=== PATIENT | female | born 1950 | race Caucasian/White ===

== ENCOUNTER 2024-01-02 14:22 | Emergency (ER) | payer OTHER ==
--- OUTSIDE RECORDS SUMMARY | 2024-01-02 14:25 | XMS REPORT | Continuity of Care Document ---
Author Name Unknown Address [address] [facility] [address] [place] [address] [facility] Address [address] [facility] [address] [place] [address] Care Team Providers Care Assurance Services Manager Health Care Name Role Phone Emilee Huerta Attending Clinician Unavailable Emilee Huerta Attending Clinician Unavailable Robles, Na Ly Attending Clinician Unavailable Robles, Na L Admitting Clinician Unavailable Payers Payer Name Policy Type Policy Number Effective Date Expirati on Date Source [facility] HealthSelect TRS/ERS [facility] PPO 1 [id number] [facility] Problems Condition Name Condition Details Condition Category Status Onset Date Resolution Date Last Treatment Date Treating Clinician Comments Source [id number] Mixed hyperlipid emia Problem [facility] [id number] Intractabl e migraine with status migrainosu s, unspecifie d migraine type Problem [facility] [id number] Depression , major, recurrent, mild Problem [facility] [id number] Right elbow tendinitis Problem [facility] [id number] Abrasion of nose, initial encounter Problem [facility] [id number] History of basal cell cancer Problem [facility] [id number] Local infection of the skin and subcutaneo us tissue, unspecifie d Problem [facility] [id number] Major depressive disorder, single episode, unspecifie d Problem [facility] [id number] Meningioma Problem Com [facility] [id number] Pre-proced ure lab exam Problem [facility] [id number] Hx of abnormal mammogram Problem [facility] [id number] Vitamin D deficiency Problem [facility] [id number] Post-menop ausal atrophic vaginitis Problem [facility] [id number] Anxiety disorder, unspecifie d Problem [facility] Social History Social Habit Start Date Stop Date Quantity Comments Source History of Tobacco Use [facility] Sex Assigned At [facility] Smoking Status Start Date Stop Date Source Never Smoker [facility] Medications Ordered Medication Name Filled Medication Name Start Date Stop Date Current Medication? Ordering Clinician Indication Dosage Frequency Signature (SIG) Comments Components Source SUMAtriptan Succinate 50 MG SUMAtriptan Succinate 50 MG No SUMAtripta n Succinate 50 MG Restasis 0.05 % Restasis 0.05 % No 1{drop_ into_af fected_ eye} BID Restasis 0.05 % Multivitami n - Multivitami n - No 1{table t} QD Multivitam in - Estradiol 0.1 MG/GM Estradiol 0.1 MG/GM No Estradiol 0.1 MG/GM FLUoxetine HCl 20 MG FLUoxetine HCl 20 MG No 1{capsu le} QD FLUoxetine HCl 20 MG Rosuvastati n Calcium 10 MG Rosuvastati n Calcium 10 MG No 1{table t} Rosuvastat in Calcium 10 MG Fish Oil Fish Oil No Fish Oil Immunizations Ordered Immunization Name Filled Immunization Name Date Status Comments Source Prevnar 20 (PCV20) Prevnar 20 (PCV20) Unknown Completed [facility] Prevnar 20 (PCV20) Prevnar 20 (PCV20) Unknown Completed [facility] Prevnar 20 (PCV20) Prevnar 20 (PCV20) Unknown Completed [facility] Prevnar 20 (PCV20) Prevnar 20 (PCV20) Unknown Completed [facility] Prevnar 20 (PCV20) Prevnar 20 (PCV20) Unknown Completed [facility] Prevnar 20 (PCV20) Prevnar 20 (PCV20) Unknown Completed [facility] Prevnar 20 (PCV20) Prevnar 20 (PCV20) Unknown Completed [facility] Prevnar 20 (PCV20) Prevnar 20 (PCV20) Unknown Completed [facility] Prevnar 20 (PCV20) Prevnar 20 (PCV20) Unknown Completed [facility] Prevnar 20 (PCV20) Prevnar 20 (PCV20) Unknown Completed [facility] Prevnar 20 (PCV20) Prevnar 20 (PCV20) Unknown Completed [facility] Prevnar 20 (PCV20) Prevnar 20 (PCV20) Unknown Completed [facility] Vital Signs Vital Name Observation Time Observation Value Comments S ource height 2023-10-02 15:00:00 62 [in_i] Commo n [facility] weight 2023-10-02 15:00:00 140 [lb_av] Comm on [facility] temperature 2023-10-02 15:00:00 97.2 [degF] Com mon [facility] bmi 2023-10-02 15:00:00 25.6 kg/m2 Commo n [facility] oximetry 2023-10-02 15:00:00 97 % Commo n [facility] respiratory rate 2023-10-02 15:00:00 16 /min [facility] blood pressure systolic 2023-10-02 15:00:00 138 mm[Hg] [facility] blood pressure diastolic 2023-10-02 15:00:00 76 mm[Hg] [facility] height 2023-10-02 15:00:00 62.25 [in_i] Com [facility] weight 2023-10-02 15:00:00 140 [lb_av] Comm on [facility] temperature 2023-10-02 15:00:00 97.2 [degF] Com [facility] bmi 2023-10-02 15:00:00 25.4 kg/m2 Commo n [facility] oximetry 2023-10-02 15:00:00 97 % Commo n [facility] respiratory rate 2023-10-02 15:00:00 16 /min Common [facility] blood pressure systolic 2023-10-02 15:00:00 138 mm[Hg] Common [facility] blood pressure diastolic 2023-10-02 15:00:00 76 mm[Hg] Common [facility] height 2023-03-16 13:00:00 62.25 [in_i] Com [facility] weight 2023-03-16 13:00:00 138 [lb_av] Comm on [facility] temperature 2023-03-16 13:00:00 97.2 [degF] Com [facility] bmi 2023-03-16 13:00:00 25.04 kg/m2 Comm on [facility] oximetry 2023-03-16 13:00:00 98 % Commo n [facility] respiratory rate 2023-03-16 13:00:00 16 /min Common [facility] blood pressure systolic 2023-03-16 13:00:00 136 mm[Hg] Common [facility] blood pressure diastolic 2023-03-16 13:00:00 80 mm[Hg] Common [facility] height 2023-03-16 14:00:00 62.25 [in_i] Com [facility] weight 2023-03-16 14:00:00 138 [lb_av] Comm on [facility] temperature 2023-03-16 14:00:00 97.2 [degF] Com mon [facility] bmi 2023-03-16 14:00:00 25.04 kg/m2 Comm on [facility] oximetry 2023-03-16 14:00:00 98 % Commo n [facility] respiratory rate 2023-03-16 14:00:00 16 /min Common [facility] blood pressure systolic 2023-03-16 14:00:00 136 mm[Hg] Common [facility] blood pressure diastolic 2023-03-16 14:00:00 80 mm[Hg] [facility] height 2022-08-21 08:20:00 62.25 [in_i] Com [facility] weight 2022-08-21 08:20:00 138 [lb_av] Comm on [facility] temperature 2022-08-21 08:20:00 97.1 [degF] Com mon [facility] bmi 2022-08-21 08:20:00 25.04 kg/m2 Comm on [facility] height 2022-07-15 08:20:00 62.25 [in_i] Com [facility] weight 2022-07-15 08:20:00 136.6 [lb_av] Co mmon [facility] temperature 2022-07-15 08:20:00 97 [degF] Comm on [facility] bmi 2022-07-15 08:20:00 24.78 kg/m2 Comm on [facility] oximetry 2022-07-15 08:20:00 97 % Commo n [facility] respiratory rate 2022-07-15 08:20:00 16 /min [facility] blood pressure systolic 2022-07-15 08:20:00 130 mm[Hg] Common [facility] blood pressure diastolic 2022-07-15 08:20:00 70 mm[Hg] [facility] Encounters Start Date/Time End Date/Time Encounter Type Admission Type Attending Clinicians Care Facility Care Department Encounter ID Source 2023-10-07 12:01:00 Outpatient Emilee Huerta [facility] [id number] [facility] 2023-10-02 14:33:00 Outpatient Emilee Huerta [facility] [id number] [facility] 2023-09-30 08:51:01 Outpatient Emilee Huerta [facility] ST[facility] [id number] [facility] 2023-09-29 15:08:00 Outpatient Emilee Huerta [facility] ST[facility] [id number] [facility] 2022-08-19 08:02:01 Outpatient Emilee Huerta [facility] ST[facility] [id number] [facility] 2022-07-15 08:19:02 Outpatient Emilee Huerta STL[facility] ST[facility] [id number] [facility] 2023-12-09 00:00:00 2023-12-09 00:00:00 (TEL) STLMLC STLMLC [id number] [facility] 2023-11-27 08:00:00 2023-11-27 08:00:[address] [facility] [place] [id number] [facility] 2023-10-26 00:00:00 2023-10-26 00:00:00 (WEB) STLMLC STLMLC [id number] [facility] 2023-10-12 00:00:00 2023-10-12 00:00:00 (TEL) STLMLC STLMLC [id number] [facility] 2023-10-06 00:00:00 2023-10-06 00:00:00 (WEB) STLMLC STLMLC [id number] [facility] 2023-10-02 00:00:00 2023-10-02 00:00:00 OFFICE VISIT ESTAB PT LEVEL 4 STLMLC STLMLC [id number] [facility] 2023-10-02 00:00:00 2023-10-02 00:00:00 SUB ANNUAL MCR WELLNESS VISIT STLMLC STLMLC [id number] [facility] 2023-09-29 00:00:00 2023-09-29 00:00:00 (WEB) STLMLC STLMLC [id number] [facility] 2023-03-16 00:00:00 2023-03-16 00:00:00 OFFICE VISIT ESTAB PT LEVEL 4 STLMLC STLMLC [id number] [facility] 2023-03-16 00:00:00 2023-03-16 00:00:00 SUB ANNUAL MCR WELLNESS VISIT STLMLC STLMLC [id number] [facility] 2022-11-20 00:00:00 2022-11-20 00:00:00 (TEL) STLMLC STLMLC [id number] [facility] 2022-08-21 00:00:00 2022-08-21 00:00:00 OFFICE VISIT ESTAB PT LEVEL 4 [facility]LMLC STLMLC [id number] [facility] 2022-07-24 00:00:00 2022-07-24 00:00:00 (TEL) STLMLC STLMLC [id number] [facility] 2022-07-15 00:00:00 2022-07-15 00:00:00 OFFICE VISIT ESTAB PT LEVEL 4 [facility]LMLC STLMLC [id number] [facility] 2021-11-13 08:00:00 2021-11-13 08:00:00 Outpatient Tanja Tamayo [id number] [facility] 2020-11-12 12:00:00 2020-11-12 12:00:00 Outpatient Tanja TamayoPM NAMITA [id number] [facility] Results Test Description Test Time Test Comments Results Result Co mments Source VITAMIN D,1,11-[id number] 00:00:00* Test Item Value Reference Range Interpretation Comme nts VITAMIN D,1,25-DIHYDROXY (test code = 1649-3) 65.8 PG/ML See_Comment [Automated message] The system which generated this result transmitted reference range: 20.0-82.0 PG/ML. The reference range was not used to interpret this result as normal/abnormal. LIPID PANEL WITH REFLEX DIRECT [id number] 00:00:00* Test Item Value Reference Range Interpretation Comme nts CALC LDL CHOL (test code = 11173-2) 81 MG/DL See_Comment [Automated messa ge] The system which generated this result transmitted reference range: <100 MG/DL. The reference range was not used to interpret this result as normal/abnormal. CHOLESTEROL (test code = 2093-3) 170 MG/DL See_Comment [Automated messa ge] The system which generated this result transmitted reference range: <200 MG/DL. The reference range was not used to interpret this result as normal/abnormal. HDL CHOLESTEROL (test code = 2085-9) 75 MG/DL See_Comment [Automated messa ge] The system which generated this result transmitted reference range: >39 MG/DL. The reference range was not used to interpret this result as normal/abnormal. RISK RATIO LDL/HDL (test code = 96378-5) 1.08 RATIO See_Comment [Automated message] The system which generated this result transmitted reference range: <3.22 RATIO. The reference range was not used to interpret this result as normal/abnormal. TRIGLYCERIDES (test code = 2571-8) 48 MG/DL See_Comment [Automated messa ge] The system which generated this result transmitted reference range: <150 MG/DL. The reference range was not used to interpret this result as normal/abnormal. COMPREHENSIVE METABOLIC [id number] 00:00:00* Test Item Value Reference Range Interpretation Comme nts ALBUMIN (test code = 1751-7) 4.7 G/DL See_Comment [Automated messa ge] The system which generated this result transmitted reference range: 3.5-5.2 G/DL. The reference range was not used to interpret this result as normal/abnormal. ALKALINE PHOSPHATASE (test code = 6768-6) 61 U/L See_Comment [Automated message] The system which generated this result transmitted reference range: 40-142 U/L. The reference range was not used to interpret this result as normal/abnormal. BILIRUBIN, TOTAL (test code = 1975-2) 0.4 MG/DL See_Comment [Automated message] The system which generated this result transmitted reference range: <=1.2 MG/DL. The reference range was not used to interpret this result as normal/abnormal. BUN (test code = 3094-0) 14 MG/DL See_Comment [Automated messa ge] The system which generated this result transmitted reference range: 8-23 MG/DL. The reference range was not used to interpret this result as normal/abnormal. CALCIUM (test code = 04595-8) 9.2 MG/DL See_Comment [Automated messa ge] The system which generated this result transmitted reference range: 8.5-10.5 MG/DL. The reference range was not used to interpret this result as normal/abnormal. CALC A/G RATIO (test code = 1759-0) 2.6 RATIO See_Comment [Automated messa ge] The system which generated this result transmitted reference range: 1.0-2.6 RATIO. The reference range was not used to interpret this result as normal/abnormal. CALC BUN/CREAT (test code = 3097-3) 18 RATIO See_Comment [Automated messa ge] The system which generated this result transmitted reference range: 6-28 RATIO. The reference range was not used to interpret this result as normal/abnormal. CALC GLOBULIN (test code = 44891-7) 1.8 G/DL See_Comment L [Automated messa ge] The system which generated this result transmitted reference range: 1.9-3.7 G/DL. The reference range was not used to interpret this result as normal/abnormal. CARBON DIOXIDE (test code = 1963-8) 26 MEQ/L See_Comment [Automated messa ge] The system which generated this result transmitted reference range: 19-31 MEQ/L. The reference range was not used to interpret this result as normal/abnormal. CHLORIDE (test code = 2075-0) 107 MEQ/L See_Comment [Automated messa ge] The system which generated this result transmitted reference range: 95-107 MEQ/L. The reference range was not used to interpret this result as normal/abnormal. CREATININE (test code = 2160-0) 0.80 MG/DL See_Comment [Automated messa ge] The system which generated this result transmitted reference range: 0.60-1.30 MG/DL. The reference range was not used to interpret this result as normal/abnormal. eGFR (2020 CKD-EPI) (test code = 20722-6) 79 ML/MIN/1.73 See_Comment [Automated messa ge] The system which generated this result transmitted reference range: >60 ML/MIN/1.73. The reference range was not used to interpret this result as normal/abnormal. GLUCOSE (test code = 1558-6) 96 MG/DL See_Comment [Automated messa ge] The system which generated this result transmitted reference range: 70-99 MG/DL. The reference range was not used to interpret this result as normal/abnormal. POTASSIUM (test code = 2823-3) 4.8 MEQ/L See_Comment [Automated messa ge] The system which generated this result transmitted reference range: 3.5-5.4 MEQ/L. The reference range was not used to interpret this result as normal/abnormal. PROTEIN, TOTAL (test code = 2885-2) 6.5 G/DL See_Comment [Automated messa ge] The system which generated this result transmitted reference range: 6.1-8.3 G/DL. The reference range was not used to interpret this result as normal/abnormal. AST (test code = 1920-8) 31 U/L See_Comment [Automated messa ge] The system which generated this result transmitted reference range: 9-40 U/L. The reference range was not used to interpret this result as normal/abnormal. ALT (test code = 1742-6) 33 U/L See_Comment [Automated messa ge] The system which generated this result transmitted reference range: 5-40 U/L. The reference range was not used to interpret this result as normal/abnormal. SODIUM (test code = 2951-2) 143 MEQ/L See_Comment [Automated messa ge] The system which generated this result transmitted reference range: 133-146 MEQ/L. The reference range was not used to interpret this result as normal/abnormal. ColonoscopyColonoscopy
--- NOTE | 2024-01-02 16:29 | RAD REPORT ---
EXAM DESCRIPTION: [facility]01/02/2024 3:28 pm CLINICAL HISTORY: Right leg pain and swelling. COMPARISON: None. FINDINGS: Right common femoral, superficial femoral, greater saphenous, popliteal and right posterio r tibial veins are compressible and demonstrate augmentation. Doppler demonstrates good flow. 6 centimeter Varela's cyst Grayscale, color and spectral analysis performed on all vessels IMPRESSION: No evidence of deep venous thrombosis involving the right lower extremity. 6 centimeter complex Varela's cyst extends into the right calf
--- NOTE | 2024-01-02 16:41 | ER ---
Nurse's Notes [facility] Name: Sara Jang Age: 73 yrs Sex: Female : 1950 Arrival Date: 01/02/2024 Time: 14:22 Bed DX3 Private MD: Diagnosis: Synovial cyst of popliteal space [Varela], right knee-complex, 6 cm Presentation: 01/01 14:38 Chief complaint: Patient states: [facility] to rule out DVT cm10 of right leg. Pt has noted redness and swelling to right leg. Pt states that she has had the pain all week and today it was worse. Coronavirus screen: Client denies travel out of the [place] in the last 14 days. At this time, the client does not indicate any symptoms associated with coronavirus-19. Ebola Screen: Patient denies travel to an Ebola-affected area in the 21 days before illness onset. No symptoms or risks identified at this time. Initial Sepsis Screen: Does the patient meet any 2 criteria? No. Patient's initial sepsis screen is negative. Does the patient have a suspected source of infection? No. Patient's initial sepsis screen is negative. Risk Assessment: Do you want to hurt yourself or someone else? Patient reports no desire to harm self or others. Onset of symptoms was January 02, 2024. 14:38 Method Of Arrival: Ambulatory cm10 14:38 Acuity: MALIK 3 cm10 Triage Assessment: 14:43 General: Appears in no apparent distress. comfortable, Behavior is calm, cooperative. cm10 Pain: Complains of pain in right leg Pain currently is 6 out of 10 on a pain scale. Quality of pain is described as Tightness. Neuro: No deficits noted. Level of Consciousness is awake, alert, obeys commands, Oriented to person, place, time, situation, Appropriate for age. Historical: - Allergies: 14:42 No Known Allergies; cm10 - PMHx: 14:42 Anxiety; Depressive disorder; Hypercholesterolemia; cm10 - PSHx: 14:42 Appendectomy; Tonsillectomy; cm10 - Immunization history:: Adult Immunizations up to date. - Infectious Disease History:: Denies. - Social history:: Smoking status: Patient denies any tobacco usage or history of. Screenin:37 [facility] ED Fall Risk Assessment (Adult) History of falling in the last 3 months, hb including since admission No falls in past 3 months (0 pts) Confusion or Disorientation No (0 pts) Intoxicated or Sedated No (0 pts) Impaired Gait No (0 pts) Mobility Assist Device Used No (0 pt) Altered Elimination No (0 pt) Score/Fall Risk Level 0 - 2 = Low Risk Oriented to surroundings, Maintained a safe environment, Educated pt \T\ family on fall prevention, incl call for assistance when getting out of bed. Abuse screen: Denies threats or abuse. Denies injuries from another. Nutritional screening: No deficits noted. Tuberculosis screening: No symptoms or risk factors identified. Assessment: 17:37 General: Appears in no apparent distress. Behavior is calm, cooperative. Pain: Pain hb currently is 6 out of 10 on a pain scale. Neuro: Level of Consciousness is awake, alert, obeys commands, Oriented to person, place, time, situation. Cardiovascular: Patient's skin is warm and dry. Respiratory: Respiratory effort is even, unlabored, Respiratory pattern is regular, symmetrical. Musculoskeletal: Swelling right knee Reports right knee pain and swelling. Vital Signs: 14:38 BP 168 / 77; Pulse 83; Resp 16; Temp 97.3; Pulse Ox 96% on R/A; Weight 63.5 kg; Height cm10 5 ft. 3 in. ; Pain 6/10; 14:38 Body Mass Index 24.80 (63.50 kg, 160.02 cm) cm10 14:38 Pain Scale: Adult cm10 ED Course: 14:25 Patient arrived in ED. mr 14:26 [facility] 14:26 Deon Gleason MD is Attending Physician. sb4 14:41 Triage completed. cm10 14:43 Arm band placed on Patient placed in waiting room. cm10 15:30 [facility] US In Process Unspecified. EDMS 16:40 Tony Estrada MD is Referral Physician. sb4 17:38 Patient has correct armband on for positive identification. Provided Education on: hb medications, followup. 17:38 No provider procedures requiring assistance completed. Patient did not have IV access hb during this emergency room visit. Administered Medications: No medications were administered Medication: 17:38 VIS not applicable for this client. hb Outcome: 16:40 Discharge ordered by . sb4 17:38 Discharged to home ambulatory, with significant other, 17:38 Condition: stable 17:38 Discharge instructions given to patient, significant other, Instructed on discharge instructions, follow up and referral plans. medication usage, Demonstrated understanding of instructions, follow-up care, medications, Prescriptions given X 2, 17:38 Patient left the ED. hb Signatures: Dispatcher [employer] EDMS Reggie Sara, Reg Reg mr Pura Villagomez, RN RN Diane Boo, PA-C PA-C sb4 Margarita Roland RN RN cm10
--- NOTE | 2024-01-02 16:41 | EDPHYS ---
Physician Documentation [facility] Name: Sara Jang Age: 73 yrs Sex: Female : 1950 Arrival Date: 01/02/2024 Time: 14:22 Bed DX3 Private MD: ED Physician Deon Gleason HPI: 01/01 14:43 This 73 yrs old Female presents to ER via Ambulatory with complaints of Leg Swelling. sb4 14:43 The patient presents with swelling, tenderness. The complaints affect the right calf. sb4 Onset: The symptoms/episode began/occurred 3 day(s) ago. Treatment prior to arrival includes: over the counter medications, aspirin. The patient has not experienced similar symptoms in the past. The patient has been recently seen at an urgent care, just prior to arrival, for similar complaints, and was sent to the [facility] Emergency Department for further evaluation. Historical: - Allergies: 14:42 No Known Allergies; cm10 - PMHx: 14:42 Anxiety; Depressive disorder; Hypercholesterolemia; cm10 - PSHx: 14:42 Appendectomy; Tonsillectomy; cm10 - Immunization history:: Adult Immunizations up to date. - Infectious Disease History:: Denies. - Social history:: Smoking status: Patient denies any tobacco usage or history of. ROS: 14:43 Constitutional: Negative for fever, chills, and weight loss, sb4 14:43 MS/extremity: Positive for pain, swelling, tenderness, of the right calf, 14:43 All other systems are negative, Exam: 14:43 Constitutional: This is a well developed, well nourished patient who is awake, alert, sb4 and in no acute distress. Head/Face: Normocephalic, atraumatic. Eyes: Extra-ocular motions intact. Periorbital areas with no swelling, redness, or edema. ENT: Mucous membranes moist. Cardiovascular: Regular rate and rhythm with a normal S1 and S2. Respiratory: Lungs have equal breath sounds bilaterally, clear to auscultation and percussion. No rales, rhonchi or wheezes noted. No increased work of breathing, no retractions or nasal flaring. Skin: Warm, dry with normal turgor. Normal color with no rashes, no lesions, and no evidence of cellulitis. 14:43 Musculoskeletal/extremity: DVT Exam: negative Homans' sign noted on exam, no appreciated bluish discoloration, no erythema, no increased warmth, pain, swelling, tenderness, Vital Signs: 14:38 BP 168 / 77; Pulse 83; Resp 16; Temp 97.3; Pulse Ox 96% on R/A; Weight 63.5 kg; Height cm10 5 ft. 3 in. ; Pain 6/10; 14:38 Body Mass Index 24.80 (63.50 kg, 160.02 cm) cm10 14:38 Pain Scale: Adult cm10 MDM: 14:28 Patient medically screened. sb4 16:39 Data reviewed: vital signs, nurses notes, radiologic studies, and as a result, I will sb4 discharge patient. Counseling: I had a detailed discussion with the patient and/or guardian regarding the historical points, exam findings, and any diagnostic results supporting the discharge/admit diagnosis, radiology results, the need for outpatient follow up, a orthopedic surgeon, to return to the emergency department if symptoms worsen or persist or if there are any questions or concerns that arise at home. 01/01 14:42 Order name: Extremity [employer] ; Complete Time: 16:30 sb4 Administered Medications: No medications were administered Disposition Summary: 01/02/24 16:40 Discharge Ordered Notes: Location: Home sb4 Problem: new sb4 Symptoms: are unchanged sb4 Condition: Stable sb4 Diagnosis - Synovial cyst of popliteal space [Varela], right knee - complex, 6 cm sb4 Followup: sb4 - With: Tony Estrada MD - When: 2 - 3 days - Reason: Recheck today's complaints, Re-evaluation by your physician Discharge Instructions: - Discharge Summary Sheet sb4 - Varela Cyst sb4 Forms: - Patient Portal Instructions sb4 - Leadership Thank You Letter sb4 Prescriptions: - Diclofenac Sodium 75 mg Oral Tablet Sustained Release - take 1 tablet ORAL route 2 times per day; 30 tablet; Refills: 0, Product sb4 Selection Permitted - Medrol (Vinh) 4 mg Oral Tablets, Dose Pack - take 1 tablet ORAL route as directed - follow package instructions; 1 packet; sb4 Refills: 0, Product Selection Permitted Signatures: Dispatcher [employer] Diane Canesco PA-C PA-C sb4 Margarita Roland RN RN cm10
[2024-01-02 17:42] VITALS: BP 168/77; TEMP 97.3; O2SAT 96
== END 2024-01-02 17:38 | disposition home or self-care (01) ==
LOC: ER 14:22
DX: M71.21 Synovial cyst of popliteal space [Baker], right knee (principal)
CPT/HCPCS: 93971; 99283

== ENCOUNTER 2024-01-14 15:22 | Emergency (ER) | payer OTHER ==
--- OUTSIDE RECORDS SUMMARY | 2024-01-14 15:25 | XMS REPORT | Continuity of Care Document ---
Author Name Unknown Address [address] [place] [address] [facility] [address] [place] [address] Care Team Providers Care Navigation Teacher Name Role Phone Emilee Huerta Attending Clinician Unavailable Emilee Huerta Attending Clinician Unavailable Robles, Na Ly Attending Clinician Unavailable Robles, Na L Admitting Clinician Unavailable Payers Payer Name Policy Type Policy Number Effective Date Expirati on Date Source [facility] [employer] TRS/ERS MCR PPO 1 [id number] [facility] Problems Condition Name Condition Details Condition Category Status Onset Date Resolution Date Last Treatment Date Treating Clinician Comments Source [id number] Mixed hyperlipid emia Problem [facility] [id number] Intractabl e migraine with status migrainosu s, unspecifie d migraine type Problem [facility] [id number] Depression , major, recurrent, mild Problem [facility] [id number] Right elbow tendinitis Problem [facility] [id number] Abrasion of nose, initial encounter Problem [facility] [id number] History of basal cell cancer Problem [facility] [id number] Local infection of the skin and subcutaneo us tissue, unspecifie d Problem [facility] [id number] Major depressive disorder, single episode, unspecifie d Problem [facility] [id number] Meningioma Problem Com [facility] [id number] Pre-proced ure lab exam Problem [facility] [id number] Hx of abnormal mammogram Problem [facility] [id number] Vitamin D deficiency Problem [facility] [id number] Post-menop ausal atrophic vaginitis Problem [facility] [id number] Anxiety disorder, unspecifie d Problem [facility] Social History Social Habit Start Date Stop Date Quantity Comments Source History of Tobacco Use [facility] Sex Assigned At [facility] Smoking Status Start Date Stop Date Source Never Smoker [facility] Medications Ordered Medication Name Filled Medication Name Start Date Stop Date Current Medication? Ordering Clinician Indication Dosage Frequency Signature (SIG) Comments Components Source Fish Oil Fish Oil No Fish Oil SUMAtriptan Succinate 50 MG SUMAtriptan Succinate 50 [...] 1{table t} Rosuvastat in Calcium 10 MG Immunizations Ordered Immunization Name Filled Immunization Name Date Status Comments Source Prevnar 20 (PCV20) Prevnar 20 (PCV20) Unknown Completed [facility] Prevnar 20 (PCV20) Prevnar 20 (PCV20) Unknown Completed [facility] Prevnar 20 (PCV20) Prevnar 20 (PCV20) Unknown Completed [facility] Prevnar 20 (PCV20) Prevnar 20 (PCV20) Unknown Completed [facility] Prevnar 20 (PCV20) Prevnar 20 (PCV20) Unknown Completed [facility] Prevnar 20 (PCV20) Prevnar 20 (PCV20) Unknown Completed [facility] Prevnar 20 (PCV20) Prevnar 20 (PCV20) Unknown Completed [facility] Prevnar 20 (PCV20) Prevnar 20 (PCV20) Unknown Completed [facility] Prevnar 20 (PCV20) Prevnar 20 (PCV20) Unknown Completed [facility] Prevnar 20 (PCV20) Prevnar 20 (PCV20) Unknown Completed [facility] Prevnar 20 (PCV20) Prevnar 20 (PCV20) Unknown Completed [facility] Prevnar 20 (PCV20) Prevnar 20 (PCV20) Unknown Completed [facility] Vital Signs Vital Name Observation Time Observation Value Comments S ource height 2023-10-02 15:00:00 62 [in_i] Commo n [facility] weight 2023-10-02 15:00:00 140 [lb_av] Comm on [facility] temperature 2023-10-02 15:00:00 97.2 [degF] Com mon [facility] bmi 2023-10-02 15:00:00 25.6 kg/m2 Commo n [facility] oximetry 2023-10-02 15:00:00 97 % Commo n [facility] respiratory rate 2023-10-02 15:00:00 16 /min [facility] blood pressure systolic 2023-10-02 15:00:00 138 mm[Hg] [facility] blood pressure diastolic 2023-10-02 15:00:00 76 mm[Hg] [facility] height 2023-10-02 15:00:00 62.25 [in_i] Com [facility] weight 2023-10-02 15:00:00 140 [lb_av] Comm on [facility] temperature 2023-10-02 15:00:00 97.2 [degF] Com [facility] bmi 2023-10-02 15:00:00 25.4 kg/m2 Commo n [facility] oximetry 2023-10-02 15:00:00 97 % Commo n [facility] respiratory rate 2023-10-02 15:00:00 16 /min Common [facility] blood pressure systolic 2023-10-02 15:00:00 138 mm[Hg] Common [facility] blood pressure diastolic 2023-10-02 15:00:00 76 mm[Hg] Common [facility] height 2023-03-16 13:00:00 62.25 [in_i] Com [facility] weight 2023-03-16 13:00:00 138 [lb_av] Comm on [facility] temperature 2023-03-16 13:00:00 97.2 [degF] Com [facility] bmi 2023-03-16 13:00:00 25.04 kg/m2 Comm on [facility] oximetry 2023-03-16 13:00:00 98 % Commo n [facility] respiratory rate 2023-03-16 13:00:00 16 /min Common [facility] blood pressure systolic 2023-03-16 13:00:00 136 mm[Hg] Common [facility] blood pressure diastolic 2023-03-16 13:00:00 80 mm[Hg] Common [facility] height 2023-03-16 14:00:00 62.25 [in_i] Com [facility] weight 2023-03-16 14:00:00 138 [lb_av] Comm on [facility] temperature 2023-03-16 14:00:00 97.2 [degF] Com mon [facility] bmi 2023-03-16 14:00:00 25.04 kg/m2 Comm on [facility] oximetry 2023-03-16 14:00:00 98 % Commo n [facility] respiratory rate 2023-03-16 14:00:00 16 /min Common [facility] blood pressure systolic 2023-03-16 14:00:00 136 mm[Hg] Common [facility] blood pressure diastolic 2023-03-16 14:00:00 80 mm[Hg] [facility] height 2022-08-21 08:20:00 62.25 [in_i] Com [facility] weight 2022-08-21 08:20:00 138 [lb_av] Comm on [facility] temperature 2022-08-21 08:20:00 97.1 [degF] Com mon [facility] bmi 2022-08-21 08:20:00 25.04 kg/m2 Comm on [facility] height 2022-07-15 08:20:00 62.25 [in_i] Com [facility] weight 2022-07-15 08:20:00 136.6 [lb_av] Co mmon [facility] temperature 2022-07-15 08:20:00 97 [degF] Comm on [facility] bmi 2022-07-15 08:20:00 24.78 kg/m2 Comm on [facility] oximetry 2022-07-15 08:20:00 97 % Commo n [facility] respiratory rate 2022-07-15 08:20:00 16 /min [facility] blood pressure systolic 2022-07-15 08:20:00 130 mm[Hg] Common [facility] blood pressure diastolic 2022-07-15 08:20:00 70 mm[Hg] [facility] Encounters Start Date/Time End Date/Time Encounter Type Admission Type Attending [facility] Care Facility Care Department Encounter ID Source 2024-01-04 11:33:00 Outpatient Emilee Huerta [facility] [id number] [facility] 2023-10-07 12:01:00 Outpatient Emilee Huerta [facility] [id number] [facility] 2023-10-02 14:33:00 Outpatient Emilee Huerta [facility] [id number] [facility] 2023-09-30 08:51:01 Outpatient Emilee Huerta [facility] ST[facility] [id number] [facility] 2023-09-29 15:08:00 Outpatient Emilee Huerta [facility] ST[facility] [id number] [facility] 2022-08-19 08:02:01 Outpatient Emilee Huerta [facility] [id number] [facility] 2022-07-15 08:19:02 Outpatient Emilee Huerta [facility] [id number] [facility] 2023-12-09 00:00:00 2023-12-09 00:00:00 (TEL) [facility] ST[facility] [id number] [facility] 2023-11-27 08:00:00 2023-11-27 08:00:00 Outpatient Emilee Douglas [facility] [id number] [facility] 2023-10-26 00:00:00 2023-10-26 00:00:00 (WEB) [facility]LMLC STL[facility] [id number] [facility] 2023-10-12 00:00:00 2023-10-12 00:00:00 (TEL) [facility]LML[facility] ST[facility] [id number] [facility] 2023-10-06 00:00:00 2023-10-06 00:00:00 (WEB) STLMLC STL[facility]C [id number] [facility] 2023-10-02 00:00:00 2023-10-02 00:00:00 OFFICE VISIT ESTAB PT LEVEL 4 [facility] STL[facility]C [id number] [facility] 2023-10-02 00:00:00 2023-10-02 00:00:00 SUB ANNUAL MCR WELLNESS VISIT [facility]LMLC STLMLC [id number] [facility] 2023-09-29 00:00:00 2023-09-29 00:00:00 (WEB) STLMLC STL[facility]C [id number] [facility] 2023-03-16 00:00:00 2023-03-16 00:00:00 OFFICE VISIT ESTAB PT LEVEL 4 [facility] ST[facility]C [id number] [facility] 2023-03-16 00:00:00 2023-03-16 00:00:00 SUB ANNUAL MCR WELLNESS VISIT [facility]LMLC STLMLC [id number] [facility] 2022-11-20 00:00:00 2022-11-20 00:00:00 (TEL) STLMLC STL[facility]C [id number] [facility] 2022-08-21 00:00:00 2022-08-21 00:00:00 OFFICE VISIT ESTAB PT LEVEL 4 [facility] ST[facility]C [id number] [facility] 2022-07-24 00:00:00 2022-07-24 00:00:00 (TEL) [facility]LMLC STL[facility]C [id number] [facility] 2022-07-15 00:00:00 2022-07-15 00:00:00 OFFICE VISIT ESTAB PT LEVEL 4 [facility] STL[facility]C [id number] [facility] 2021-11-13 08:00:00 2021-11-13 08:00:00 Outpatient Tanja Tamayo [facility] [id number] [facility] 2020-11-12 12:00:00 2020-11-12 12:00:00 Outpatient [facility] [id number] [facility] Results Test Description Test Time Test Comments Results Result Co mments Source VITAMIN D,1,48-[id number] 00:00:00* Test Item Value Reference Range Interpretation Comme nts VITAMIN D,1,25-DIHYDROXY (test code = 1649-3) 65.8 PG/ML See_Comment [Automated message] The system which generated this result transmitted reference range: 20.0-82.0 PG/ML. The reference range was not used to interpret this result as normal/abnormal. LIPID PANEL WITH REFLEX DIRECT [id number] 00:00:00* Test Item Value Reference Range Interpretation Comme nts CALC LDL CHOL (test code = 79769-1) 81 MG/DL See_Comment [Automated Allocaba ge] The system which generated this result [...] code = 2085-9) 75 MG/DL See_Comment [Automated Allocaba ge] The system which generated this result transmitted reference range: >39 MG/DL. The reference range was not used to interpret this result as normal/abnormal. RISK RATIO LDL/HDL (test code = 83135-7) 1.08 RATIO See_Comment [Automated message] The system which generated this result transmitted reference range: <3.22 RATIO. The reference range was not used to interpret this result as normal/abnormal. TRIGLYCERIDES (test code = 2571-8) 48 MG/DL See_Comment [Automated [employer]oc[employer] ge] The system which generated this result transmitted reference range: <150 MG/DL. The reference range was not used to interpret this result as normal/abnormal. COMPREHENSIVE METABOLIC [id number] 00:00:00* Test Item Value Reference Range Interpretation [...] result as normal/abnormal. CALCIUM (test code = 20038-9) 9.2 MG/DL See_Comment [Automated messa ge] The [...] as normal/abnormal. CALC GLOBULIN (test code = 22312-3) 1.8 G/DL See_Comment L [Automated messa ge] [...] normal/abnormal. eGFR (2020 CKD-EPI) (test code = 23721-7) 79 ML/MIN/1.73 See_Comment [Automated messa ge] The [...]
--- NOTE | 2024-01-14 15:54 | EDPHYS ---
Physician Documentation [facility] Name: Sara Jang Age: 73 yrs Sex: Female : 1950 Arrival Date: 01/14/2024 Time: 15: Bed IW1 Private MD: ED Physician Julio Cheatham HPI: 01/13 15:54 This 73 yrs old Female presents to ER via Ambulatory with complaints of Leg ec2 Swelling. 15:54 Patient arrives today for reswelling of her right lower extremity. Patient had a ec2 Varela's cyst that was diagnosed via ultrasound the other day. Patient reports swelling gotten better after Medrol Dosepak, subsequently she has been more ambulatory and noticed increased swelling in the right lower extremity. Had seen Dr. Estrada in between however the symptoms had improved. Patient reports no new risk factors for DVT or PE, denies any difficulty breathing, denies any significant pain, no redness, no fevers, no chills. Patient reports no long car rides or flights, no new medications.. Historical: - Allergies: 15:45 No Known Allergies; dd2 - PMHx: 15:45 Anxiety; depressive disorder; Hypercholesterolemia; dd2 - PSHx: 15:45 Appendectomy; Tonsillectomy; dd2 - Immunization history:: Adult Immunizations up to date. - Infectious Disease History:: Denies. - Social history:: Smoking status: Patient denies any tobacco usage or history of. ROS: 15:54 Constitutional: as per hpi ec2 Exam: 15:54 Constitutional: GEN: NAD Head: atraumatic Eyes: EOMI Ears: External ears are ec2 normal. CV: regular rate LUNGS: no respiratory distress ABD: non-distended SKIN: Trace right lower extremity edema noted. Intact distal neurovascular status. MSK: no evidence of trauma Vital Signs: 15:43 BP 157 / 90; Pulse 100; Resp 16; Temp 97.8; Pulse Ox 99% ; dd2 16:02 BP 148 / 82; Pulse 88; Resp 16; Pulse Ox 100% ; ko1 MDM: 15:43 Patient medically screened. ec2 15:54 Data reviewed: vital signs. ED course: Patient arrives today for right lower extremity ec2 edema in the setting of known history of Varela's cyst. Examination as above. Suspect Varela's cyst. Lower suspicion for DVT. Discussed possible utility of repeat ultrasound for evaluation of DVT however patient has a known Varela's cyst and has no new risk factors to indicate DVT. Will give the patient Medrol Dosepak as this seemed to improve her symptoms last time and we will have her follow-up with Dr. Estrada.. Administered Medications: No medications were administered Disposition Summary: 01/14/24 15:53 Discharge Ordered Notes: Location: Home ec2 Condition: Stable ec2 Diagnosis - Synovial cyst of popliteal space [Varela], right knee ec2 Followup: ec2 - With: Tony Estrada MD - When: - Reason: Recheck today's complaints Discharge Instructions: - Discharge Summary Sheet ec2 - Varela Cyst ec2 Forms: - Medication Reconciliation Form ec2 - Antibiotic Education ec2 - Prescription Opioid Use ec2 - Patient Portal Instructions ec2 - Leadership Thank You Letter ec2 Prescriptions: - Medrol (Vinh) 4 mg Oral Tablets, Dose Pack - take 1 tablet ORAL route as directed - follow package instructions; 1 packet; ec2 Refills: 0, Product Selection Permitted Signatures: Julio Cheatham MD MD ec2 REJI JACINTO RN RN dd2
--- NOTE | 2024-01-14 15:54 | ER ---
Nurse's Notes [facility] Name: Sara Jang Age: 73 yrs Sex: Female : 1950 Arrival Date: 01/14/2024 Time: 15: Bed IW1 Private MD: Diagnosis: Synovial cyst of popliteal space [Varela], right knee Presentation: 01/13 15:43 Chief complaint: Patient states: Pt states here for rt leg swelling. States was here 2 dd2 weeks ago, diagnosed with a Bakers Cyst and was taking steroids. Coronavirus screen: At this time, the client does not indicate any symptoms associated with coronavirus-19. Ebola Screen: No symptoms or risks identified at this time. Initial Sepsis Screen: Does the patient meet any 2 criteria? No. Patient's initial sepsis screen is negative. Does the patient have a suspected source of infection? No. Patient's initial sepsis screen is negative. Risk Assessment: Do you want to hurt yourself or someone else? Patient reports no desire to harm self or others. Onset of symptoms. 15:43 Method Of Arrival: Ambulatory dd2 15:43 Acuity: MALIK 3 dd2 Triage Assessment: 15:45 General: Appears in no apparent distress. Behavior is calm, cooperative. Pain: dd2 Complains of pain in right leg Quality of pain is described as TIGHTNESS. Historical: - Allergies: 15:45 No Known Allergies; dd2 - PMHx: 15:45 Anxiety; depressive disorder; Hypercholesterolemia; dd2 - PSHx: 15:45 Appendectomy; Tonsillectomy; dd2 - Immunization history:: Adult Immunizations up to date. - Infectious Disease History:: Denies. - Social history:: Smoking status: Patient denies any tobacco usage or history of. Screenin:49 [facility] ED Fall Risk Assessment (Adult) History of falling in the last 3 months, dd2 including since admission No falls in past 3 months (0 pts) Confusion or Disorientation No (0 pts) Intoxicated or Sedated No (0 pts) Impaired Gait No (0 pts) Mobility Assist Device Used No (0 pt) Altered Elimination No (0 pt) Score/Fall Risk Level 0 - 2 = Low Risk Oriented to surroundings, Maintained a safe environment, Hourly rounding (assess needs \T\ fall precautionary measures) done. Abuse screen: Denies threats or abuse. Nutritional screening: No deficits noted. Tuberculosis screening: No symptoms or risk factors identified. Assessment: 15:49 Neuro: No deficits noted. Cardiovascular: No deficits noted. Respiratory: No deficits dd2 noted. GI: No deficits noted. : No deficits noted. EENT: No deficits noted. Derm: No deficits noted. Musculoskeletal: Swelling present in right leg. Vital Signs: 15:43 BP 157 / 90; Pulse 100; Resp 16; Temp 97.8; Pulse Ox 99% ; dd2 16:02 BP 148 / 82; Pulse 88; Resp 16; Pulse Ox 100% ; ko1 ED Course: 15:24 Patient arrived in ED. mg5 15:25 Julio Cheatham MD is Attending Physician. ec2 15:45 Triage completed. dd2 15:45 Arm band placed on left wrist. Patient placed in an exam room, on a stretcher, on pulse dd2 oximetry, Patient notified of wait time. 15:49 Patient has correct armband on for positive identification. PT SITTING IN WAITING AREA. dd2 Provided Education on: MEDICATIONS. 15:49 No provider procedures requiring assistance completed. IV discontinued. dd2 15:53 Tony Estrada MD is Referral Physician. ec2 16:02 Natalie Pedroza, JULISA is Primary Nurse. ko1 Administered Medications: No medications were administered Medication: 15:49 VIS not applicable for this client. dd2 Outcome: 15:53 Discharge ordered by . ec2 16:02 Discharged to home ambulatory, ko1 16:02 Condition: stable 16:02 Discharge instructions given to patient, Instructed on discharge instructions, follow up and referral plans. medication usage, Demonstrated understanding of instructions, follow-up care, medications, Prescriptions given X 1, 16:02 Patient left the ED. ko1 Signatures: Natalie Pedroza, RN RN ko1 Jesica Aragon mg5 Julio Cheatham MD MD ec2 REJI JACINTO RN RN dd2
[2024-01-14 16:06] VITALS: TEMP 97.8
[2024-01-14 16:08] VITALS: BP 148/82; O2SAT 100
== END 2024-01-14 16:02 | disposition home or self-care (01) ==
LOC: ER 15:22
DX: M71.21 Synovial cyst of popliteal space [Baker], right knee (principal)
CPT/HCPCS: 99283